=== PATIENT | male | born 1950 | race African-American/Black ===

== ENCOUNTER 2021-01-08 15:13 | Day surgery (SDCO) | payer MEDICARE, OTHER ==
[~2021-01-08] VITALS: Ht 182.9 cm; Wt 65.5 kg
[2021-01-08 15:51] LABS: BASOPHIL 0.3 % (0-2); EOSINOPHIL 0.2 % (0-7); HCT 31.3 % (42.0-52.0); HGB 10.2 g/dl (13.2-18.0); LYMPHOCYTE 14.2 % (15-48); MCH 29.3 pg (25.0-31.0); MCHC 32.6 g/dL (32.0-36.0); MCV 89.9 fL (78.0-100.0); MONOCYTE 7.9 % (0-12); MPV 9.9 fL (6.0-9.5); NEUTROPHIL 76.8 % (41-80); NRBC 0; PLT 211 K/uL (150-400); RBC 3.48 M/uL (4.70-6.00); RDW 15.2 % (11.5-14.0); WBC 6.2 K/uL (4.0-10.5)
[2021-01-08 16:16] LABS: ALBUMIN 3.5 g/dL (3.4-5.0); BILIRUBIN - TOTAL 0.7 mg/dL (0.2-1.0); BUN/CREAT RATIO (CALC) 11.1 RATIO; CREATININE 1.35 mg/dL (0.67-1.17); GLOBULIN (CALCULATION) 3.8 g/dL; POTASSIUM 3.7 mmol/L (3.5-5.1); TOTAL PROTEIN 7.3 g/dL (6.4-8.2)
[2021-01-08 16:36] LABS: PRO-BNP > 35000 pg/mL (<125)
[2021-01-08 16:52] LABS: INR 1.29 (0.9-1.2); PROTHROMBIN TIME 15.3 SECONDS (11.4-13.6)
[2021-01-08 16:53] LABS: PTT 47.4 SECONDS (22.2-34.7)
[2021-01-09 06:01] LABS: HCT 28.4 % (42.0-52.0); HGB 9.3 g/dl (13.2-18.0); MCH 29.6 pg (25.0-31.0); MCHC 32.7 g/dL (32.0-36.0); MCV 90.4 fL (78.0-100.0); MPV 10.1 fL (6.0-9.5); RBC 3.14 M/uL (4.70-6.00); RDW 15.1 % (11.5-14.0); WBC 4.3 K/uL (4.0-10.5)
[2021-01-09 06:19] LABS: BUN/CREAT RATIO (CALC) 13.2 RATIO; CREATININE 1.36 mg/dL (0.67-1.17)
[2021-01-09] MEDS ORDERED: COREG 3.125M3.125 MG PO (10:11)
[2021-01-09] MEDS ORDERED: AZITHROMYCIN250 MG PO (10:11)
[2021-01-09] MEDS ORDERED: ADULT LOW DOSE81 MG PO (10:14)
[2021-01-09] MEDS ORDERED: ATORVASTATIN CA80 MG PO (10:15)
[2021-01-09] MEDS ORDERED: PERCOCET 5-3251 EACH PO (10:16)
[2021-01-09] MEDS ORDERED: BRILINTA90 MG PO (10:16)
[2021-01-09] MEDS ORDERED: K-DUR20 MEQ PO (10:17)
[2021-01-09] MEDS ORDERED: VENTOLIN HFA IN18 GM INH ×2 (10:17→10:32)
--- NOTE | 2021-01-09 14:47 | NUR ---
01/09/21 Patient was discharged home. No discharge planning needs were identified.
== END 2021-01-09 12:30 | disposition home or self-care (01) ==
LOC: FER 15:13 → FTCU 17:17
PROVIDERS: Emergency Medicine; ADMIT Hospitalist
DX: J40 Bronchitis, not specified as acute or chronic (principal); I11.0 Hypertensive heart disease with heart failure; I50.9 Heart failure, unspecified; I25.10 Atherosclerotic heart disease of native coronary artery without angina pectoris; I25.5 Ischemic cardiomyopathy; E11.9 Type 2 diabetes mellitus without complications; E78.5 Hyperlipidemia, unspecified; Z95.818 Presence of other cardiac implants and grafts; Z20.822 Contact with and (suspected) exposure to COVID-19; Z95.810 Presence of automatic (implantable) cardiac defibrillator; Z87.891 Personal history of nicotine dependence; Z79.899 Other long term (current) drug therapy
CPT/HCPCS: 36415; 71046; 80048; 80053; 82962; 83880; 84443; 84484; 85025; 85610; 85730; 93005; G0378; J1650; U0002

== ENCOUNTER 2021-03-17 06:11 | Emergency (ER) | payer MEDICARE ==
[~2021-03-17 06:11] MED LIST: ADULT LOW DOSE81 MG PO; ATORVASTATIN CA80 MG PO; AZITHROMYCIN250 MG PO; BRILINTA90 MG PO; COREG 3.125M3.125 MG PO; K-DUR20 MEQ PO; PERCOCET 5-3251 EACH PO; VENTOLIN HFA IN18 GM INH
[2021-03-17 06:36] LABS: BASOPHIL 0.9 % (0-2); EOSINOPHIL 1.8 % (0-7); HCT 32.2 % (42.0-52.0); HGB 10.2 g/dl (13.2-18.0); LYMPHOCYTE 27.1 % (15-48); MCH 27.6 pg (25.0-31.0); MCHC 31.7 g/dL (32.0-36.0); MCV 87.3 fL (78.0-100.0); MONOCYTE 5.5 % (0-12); MPV 9.9 fL (6.0-9.5); NEUTROPHIL 64.7 % (41-80); NRBC 0; PLT 212 K/uL (150-400); RBC 3.69 M/uL (4.70-6.00); RDW 15.5 % (11.5-14.0); WBC 3.3 K/uL (4.0-10.5)
[2021-03-17 06:58] LABS: ALBUMIN 3.2 g/dL (3.4-5.0); BILIRUBIN - TOTAL 0.3 mg/dL (0.2-1.0); BUN/CREAT RATIO (CALC) 12.6 RATIO; CREATININE 1.27 mg/dL (0.67-1.17); GLOBULIN (CALCULATION) 3.5 g/dL; POTASSIUM 4.2 mmol/L (3.5-5.1); TOTAL PROTEIN 6.7 g/dL (6.4-8.2)
[2021-03-17 06:59] LABS: INR 1.32 (0.9-1.2); PROTHROMBIN TIME 15.7 SECONDS (11.8-13.4); PTT 31.1 SECONDS (24.4-34.7)
== END 2021-03-17 07:54 | disposition home or self-care (01) ==
LOC: FER 06:11
PROVIDERS: Emergency Medicine Emergency Medical Services
DX: I50.9 Heart failure, unspecified (principal); N17.9 Acute kidney failure, unspecified; E11.9 Type 2 diabetes mellitus without complications; I48.91 Unspecified atrial fibrillation; I25.10 Atherosclerotic heart disease of native coronary artery without angina pectoris; E78.5 Hyperlipidemia, unspecified; E87.6 Hypokalemia; F17.290 Nicotine dependence, other tobacco product, uncomplicated; Z95.0 Presence of cardiac pacemaker; Z79.82 Long term (current) use of aspirin; Z79.899 Other long term (current) drug therapy
CPT/HCPCS: 36415; 71045; 80053; 83880; 84484; 85025; 85610; 85730; 93005; 99285

== ENCOUNTER 2021-03-18 18:10 | Inpatient (IN) | payer MEDICARE ==
[~2021-03-18] VITALS: Ht 182.9 cm; Wt 72.2 kg
[2021-03-18 21:38] LABS: BASOPHIL 0.7 % (0-2); EOSINOPHIL 1.4 % (0-7); HCT 29.7 % (42.0-52.0); HGB 9.4 g/dl (13.2-18.0); LYMPHOCYTE 18.6 % (15-48); MCH 27.7 pg (25.0-31.0); MCHC 31.6 g/dL (32.0-36.0); MCV 87.6 fL (78.0-100.0); MONOCYTE 3.3 % (0-12); MPV 9.5 fL (6.0-9.5); NEUTROPHIL 75.5 % (41-80); NRBC 0; PLT 197 K/uL (150-400); RBC 3.39 M/uL (4.70-6.00); RDW 15.6 % (11.5-14.0); WBC 4.3 K/uL (4.0-10.5)
[2021-03-18 21:58] LABS: BUN/CREAT RATIO (CALC) 13.8 RATIO; CREATININE 1.23 mg/dL (0.67-1.17); POTASSIUM 3.8 mmol/L (3.5-5.1)
[2021-03-18 22:35] LABS: BILIRUBIN NEGATIVE (NEGATIVE); BLOOD 2+ Ery/uL (NEGATIVE); CLARITY CLOUDY (CLEAR); COLOR YELLOW (YELLOW); GLUCOSE (U) NORMAL (NORMAL); LEUKOCYTES 2+ Leu/uL (NEGATIVE); NITRITE POSITIVE (NEGATIVE); PROTEIN 1+ mg/dL (NEGATIVE); SPECIFIC GRAVITY >=1.030 (1.001-1.030); UROBILINOGEN 0.2 mg/dL (0.2-1.0); pH 5.5 (5.0-9.0)
[2021-03-18 22:40] LABS: BACTERIA 4+; SQUAMOUS EPITHELIAL CELLS RARE; URINARY WBC 20-50
[2021-03-19] MEDS ORDERED: LASIX20 MG PO (10:29)
[2021-03-20 08:10] LABS: BASOPHIL 0.8 % (0-2); EOSINOPHIL 3.4 % (0-7); HCT 27.8 % (42.0-52.0); HGB 8.7 g/dl (13.2-18.0); LYMPHOCYTE 19.2 % (15-48); MCH 27.9 pg (25.0-31.0); MCHC 31.3 g/dL (32.0-36.0); MCV 89.1 fL (78.0-100.0); MONOCYTE 5.7 % (0-12); MPV 9.6 fL (6.0-9.5); NEUTROPHIL 70.7 % (41-80); NRBC 0; PLT 173 K/uL (150-400); RBC 3.12 M/uL (4.70-6.00); RDW 15.9 % (11.5-14.0); WBC 4.9 K/uL (4.0-10.5)
[2021-03-20 08:35] LABS: BUN/CREAT RATIO (CALC) 13.6 RATIO; CREATININE 1.1 mg/dL (0.67-1.17); POTASSIUM 4.6 mmol/L (3.5-5.1)
[2021-03-20] MEDS ORDERED: PERCOCET 5-3251 EACH PO (11:12)
[2021-03-21 06:17] LABS: BASOPHIL 0.6 % (0-2); EOSINOPHIL 1.3 % (0-7); HCT 24.5 % (42.0-52.0); HGB 7.7 g/dl (13.2-18.0); LYMPHOCYTE 14.5 % (15-48); MCH 27.8 pg (25.0-31.0); MCHC 31.4 g/dL (32.0-36.0); MCV 88.4 fL (78.0-100.0); MONOCYTE 6.1 % (0-12); MPV 10.3 fL (6.0-9.5); NEUTROPHIL 77.1 % (41-80); NRBC 0; PLT 162 K/uL (150-400); RBC 2.77 M/uL (4.70-6.00); RDW 15.7 % (11.5-14.0); WBC 8.2 K/uL (4.0-10.5)
[2021-03-21 06:51] LABS: BUN/CREAT RATIO (CALC) 17.5 RATIO; CREATININE 1.37 mg/dL (0.67-1.17); POTASSIUM 5.1 mmol/L (3.5-5.1)
--- NOTE | 2021-03-21 13:33 | NUR ---
SPOKE WITH PT. SON, AVI CRAFT. HE REQUESTED THAT HIS FATHER GO TO [facility] FOR REHAB. SENT FAX TO JACINDA AT [facility] FOR REVIEW.
[2021-03-22 06:23] LABS: BASOPHIL 0.9 % (0-2); EOSINOPHIL 2.6 % (0-7); HGB 7.5 g/dl (13.2-18.0); LYMPHOCYTE 8.3 % (15-48); MCH 27.6 pg (25.0-31.0); MCHC 31.3 g/dL (32.0-36.0); MCV 88.2 fL (78.0-100.0); MPV 10.1 fL (6.0-9.5); NEUTROPHIL 81.7 % (41-80); NRBC 0; PLT 149 K/uL (150-400); RBC 2.72 M/uL (4.70-6.00); RDW 16.1 % (11.5-14.0); WBC 6.5 K/uL (4.0-10.5)
[2021-03-22 06:46] LABS: CREATININE 1.58 mg/dL (0.67-1.17); POTASSIUM 4.8 mmol/L (3.5-5.1)
--- NOTE | 2021-03-23 02:43 | NUR ---
NIGHT NURSE HAD ANOTHER NURSE SCAN IN NIGHT MEDS BEFORE CRUSHING AND TRYING TO GIVE TO PATIENT ON 03/22/21. PT CONTINUED TO REFUSE MEDS AFTER MULTIPLE ATTEMPTS. THE SYSTEM WILL NOT LET NURSE CHANGE MEDS BEFORE MIDNIGHT. KIT SAYS HE DID TAKE 2000 AND 2200 MEDS BUT THAT IS NOT TRUE. PT REFUSED
[2021-03-23 05:26] LABS: BASOPHIL 0.7 % (0-2); EOSINOPHIL 2.2 & (0-7); HCT 26.4 % (42.0-52.0); HGB 8.4 g/dl (13.2-18.0); MCH 27.9 pg (25.0-31.0); MCHC 31.8 g/dL (32.0-36.0); MCV 87.7 fL (78.0-100.0); MONOCYTE 7.1 % (0-12); MPV 10.4 fL (6.0-9.5); NEUTROPHIL 77.9 % (41-80); PLT 184 K/uL (150-400); RBC 3.01 M/uL (4.70-6.00); RDW 15.9 % (11.5-14.0); WBC 6.93 K/uL (4.0-10.5)
[2021-03-23 05:43] LABS: BUN/CREAT RATIO (CALC) 20.6 RATIO; CREATININE 1.55 mg/dL (0.67-1.17); POTASSIUM 4.4 mmol/L (3.5-5.1)
[2021-03-24] MEDS ORDERED: STIMULANT LAXA1 EACH PO (10:02)
[2021-03-24] MEDS ORDERED: LAXATIVE SUPPOS10 MG PR (10:02)
[2021-03-24] MEDS ORDERED: ACETAMINOPHEN325 MG PO (10:02)
[2021-03-24] MEDS ORDERED: PLAVIX75 MG PO (10:02)
[2021-03-24] MEDS ORDERED: DULCOLAX5 MG PO (10:02)
[2021-03-24] MEDS ORDERED: MILK OF MA400 MG/5 M PO (10:02)
[2021-03-24] MEDS ORDERED: ASPIRIN81 MG PO (10:02)
[2021-03-24] MEDS ORDERED: TAB-A-VITE TA400 MC1 PO (10:02)
[2021-03-24] MEDS ORDERED: PEPCID AC20 MG PO (10:02)
[2021-03-24] MEDS ORDERED: HUMULIN R100 UNIT/2 SC (10:02)
[2021-03-24] MEDS ORDERED: PANTOPRAZOLE SO40 MG PO (10:02)
[2021-03-24] MEDS ORDERED: ZOFRAN4 M1 PO (10:02)
[2021-03-24] MEDS ORDERED: FEOSOL325 MG PO (10:02)
[2021-03-24] MEDS ORDERED: NORCO 5-325 TA1 EACH PO (10:02)
[2021-03-24 10:42] LABS: BILIRUBIN NEGATIVE (NEGATIVE); BLOOD 1+ Ery/uL (NEGATIVE); CLARITY CLEAR (CLEAR); COLOR YELLOW (YELLOW); GLUCOSE (U) NORMAL (NORMAL); LEUKOCYTES NEGATIVE Leu/uL (NEGATIVE); NITRITE NEGATIVE (NEGATIVE); PROTEIN NEGATIVE (NEGATIVE); UROBILINOGEN 0.2 mg/dL (0.2-1.0)
[2021-03-24 10:56] LABS: BACTERIA TRACE; SQUAMOUS EPITHELIAL CELLS RARE; URINARY RBC RARE; URINARY WBC RARE
[2021-03-24 11:18] LABS: BUN/CREAT RATIO (CALC) 24.3 RATIO; CREATININE 1.44 mg/dL (0.67-1.17); POTASSIUM 4.5 mmol/L (3.5-5.1)
[2021-03-24 11:31] LABS: BASOPHIL 0.4 % (0-2); EOSINOPHIL 0.4 % (0-7); HCT 27.2 % (42.0-52.0); HGB 8.6 g/dl (13.2-18.0); LYMPHOCYTE 9.5 % (15-48); MCH 28.4 pg (25.0-31.0); MCHC 31.6 g/dL (32.0-36.0); MCV 89.8 fL (78.0-100.0); MONOCYTE 6.1 % (0-12); MPV 10.4 fL (6.0-9.5); NEUTROPHIL 83.2 % (41-80); NRBC 0; PLT 157 K/uL (150-400); RBC 3.03 M/uL (4.70-6.00); RDW 16.4 % (11.5-14.0)
== END 2021-03-24 15:00 | DRG 480 ==
LOC: FER 18:10 → FMS 21:53
PROVIDERS: Internal Medicine; Nurse Practitioner Adult Health; Nurse Practitioner Family; Orthopaedic Surgery; ADMIT Internal Medicine
PROC: 0QS604Z Reposition Right Upper Femur with Internal Fixation Device, Open Approach (ICD-10-PCS; 2021-03-20)
PROC: 30233N1 Transfusion of Nonautologous Red Blood Cells into Peripheral Vein, Percutaneous Approach (ICD-10-PCS; principal; 2021-03-22)
DX: S72.141A Displaced intertrochanteric fracture of right femur, initial encounter for closed fracture (principal); J18.9 Pneumonia, unspecified organism; G93.41 Metabolic encephalopathy; N30.00 Acute cystitis without hematuria; D62 Acute posthemorrhagic anemia; N17.9 Acute kidney failure, unspecified; F05 Delirium due to known physiological condition; Z20.822 Contact with and (suspected) exposure to COVID-19; E11.9 Type 2 diabetes mellitus without complications; I25.5 Ischemic cardiomyopathy; E86.0 Dehydration; I25.10 Atherosclerotic heart disease of native coronary artery without angina pectoris; F03.90 Unspecified dementia, unspecified severity, without behavioral disturbance, psychotic disturbance, mood disturbance, and anxiety; I25.2 Old myocardial infarction; W01.0XXA Fall on same level from slipping, tripping and stumbling without subsequent striking against object, initial encounter; Z95.810 Presence of automatic (implantable) cardiac defibrillator
CPT/HCPCS: 36415; 36430; 70450; 71045; 73501; 73700; 76000; 80048; 80053; 81001; 82962; 83880; 84484; 85025; 85610; 85730; 86850; 86900; 86901; 86922; 93005; 94010; 96372; 96374; 96375; 97162; 97166; 97530-GP; 97535; C1713; J0696; J0697; J1170; J1630; J2060; J2250; J2370; J2405; J2704; J3010; J7030; J7120; P9016; U0002

== ENCOUNTER 2021-03-31 13:33 | Inpatient (IN) | payer MEDICARE ==
[~2021-03-31] VITALS: Ht 182.9 cm; Wt 66.4 kg
[~2021-03-31 13:33] MED LIST changes: +ACETAMINOPHEN325 MG PO; +ASPIRIN81 MG PO; +DULCOLAX5 MG PO; +FEOSOL325 MG PO; +HUMULIN R100 UNIT/2 SC; +LASIX20 MG PO; +LAXATIVE SUPPOS10 MG PR; +MILK OF MA400 MG/5 M PO; +NORCO 5-325 TA1 EACH PO; +PANTOPRAZOLE SO40 MG PO; +PEPCID AC20 MG PO; +PLAVIX75 MG PO; +STIMULANT LAXA1 EACH PO; +TAB-A-VITE TA400 MC1 PO; +ZOFRAN4 M1 PO
[2021-03-31 14:26] LABS: BASOPHIL 0.1 % (0-2); EOSINOPHIL 0 % (0-7); LYMPHOCYTE 4.5 % (15-48); MCHC 29.4 g/dL (32.0-36.0); MCV 91.6 fL (78.0-100.0); MONOCYTE 3.3 % (0-12); MPV 11.4 fL (6.0-9.5); NRBC 0; PLT 202 K/uL (150-400); RBC 3.71 M/uL (4.70-6.00); RDW 18.6 % (11.5-14.0); WBC 13.3 K/uL (4.0-10.5)
[2021-03-31 14:34] LABS: NEUTROPHIL 90.7 % (41-80)
[2021-03-31 14:44] LABS: ALBUMIN 2.2 g/dL (3.4-5.0); BILIRUBIN - TOTAL 3.5 mg/dL (0.2-1.0); BUN/CREAT RATIO (CALC) 38.8 RATIO; CREATININE 1.52 mg/dL (0.67-1.17); GLOBULIN (CALCULATION) 4.4 g/dL; POTASSIUM 4.5 mmol/L (3.5-5.1); TOTAL PROTEIN 6.6 g/dL (6.4-8.2)
[2021-03-31 14:50] LABS: LACTIC ACID 3.5 mmol/L (0.4-1.9)
[2021-03-31 14:52] LABS: INR 1.6 (0.9-1.2); PROTHROMBIN TIME 18.3 SECONDS (11.8-13.4)
[2021-03-31 17:40] LABS: BILIRUBIN 1+ mg/dL (NEGATIVE); BLOOD 2+ Ery/uL (NEGATIVE); CLARITY CLEAR (CLEAR); COLOR YELLOW (YELLOW); GLUCOSE (U) NORMAL (NORMAL); LEUKOCYTES NEGATIVE Leu/uL (NEGATIVE); NITRITE NEGATIVE (NEGATIVE); PROTEIN 2+ mg/dL (NEGATIVE); pH 7.5 (5.0-9.0)
[2021-03-31 17:43] LABS: BACTERIA TRACE; TRANSITIONAL EPITHELIAL CELLS RARE; URINARY WBC RARE
[2021-03-31 17:44] LABS: AMORPHOUS URATES CRYSTALS MODERATE
[2021-03-31 22:30] LABS: BUN/CREAT RATIO (CALC) 41.7 RATIO; CREATININE 1.56 mg/dL (0.67-1.17); PHOSPHORUS 3.7 mg/dL (2.6-4.7); POTASSIUM 3.8 mmol/L (3.5-5.1)
[2021-04-01 00:56] LABS: CKMB 1.9 ng/mL (0.0-3.6)
[2021-04-01] MEDS ORDERED: PRILOSEC20 MG PO (02:13)
[2021-04-01 05:52] LABS: BASOPHIL 0 % (0-2); EOSINOPHIL 0 % (0-7); HCT 28.6 % (42.0-52.0); HGB 8.6 g/dl (13.2-18.0); LYMPHOCYTE 3.8 % (15-48); MCH 27.2 pg (25.0-31.0); MCHC 30.1 g/dL (32.0-36.0); MCV 90.5 fL (78.0-100.0); MONOCYTE 3.2 % (0-12); MPV 11.6 fL (6.0-9.5); NEUTROPHIL 92.4 % (41-80); NRBC 0; PLT 165 K/uL (150-400); RBC 3.16 M/uL (4.70-6.00); RDW 18.3 % (11.5-14.0)
[2021-04-01 06:19] LABS: ALBUMIN 1.8 g/dL (3.4-5.0); BILIRUBIN - TOTAL 2.4 mg/dL (0.2-1.0); BUN/CREAT RATIO (CALC) 35.3 RATIO; CREATININE 1.87 mg/dL (0.67-1.17); GLOBULIN (CALCULATION) 3.7 g/dL; TOTAL PROTEIN 5.5 g/dL (6.4-8.2)
--- NOTE | 2021-04-01 10:36 | NUR ---
04/01 Mr. Mobley was admitted from [facility]. Nica reports that patient may return. A new COVID test is not requires. Rafael Avendaño, son, reports family to be seeking alternative placement. In the meantime, they plan for Mr. Mobley to return to [facility].
[2021-04-02 04:10] LABS: BASOPHIL 0.1 % (0-2); EOSINOPHIL 0 % (0-7); HCT 25.3 % (42.0-52.0); HGB 7.5 g/dl (13.2-18.0); LYMPHOCYTE 4.8 % (15-48); MCH 26.9 pg (25.0-31.0); MCHC 29.6 g/dL (32.0-36.0); MCV 90.7 fL (78.0-100.0); MONOCYTE 2.5 % (0-12); MPV 12.3 fL (6.0-9.5); NEUTROPHIL 91.9 % (41-80); NRBC 0; PLT 145 K/uL (150-400); RBC 2.79 M/uL (4.70-6.00); RDW 18.5 % (11.5-14.0); WBC 12.2 K/uL (4.0-10.5)
[2021-04-02 04:38] LABS: CREATININE 2.13 mg/dL (0.67-1.17); POTASSIUM 3.6 mmol/L (3.5-5.1)
[2021-04-03 06:07] LABS: BASOPHIL 0.1 % (0-2); EOSINOPHIL 0 % (0-7); HCT 24.5 % (42.0-52.0); HGB 7.3 g/dl (13.2-18.0); MCHC 29.8 g/dL (32.0-36.0); MCV 90.7 fL (78.0-100.0); MONOCYTE 2.4 % (0-12); MPV 13.1 fL (6.0-9.5); NRBC 0.2; PLT 125 K/uL (150-400); RDW 18.7 % (11.5-14.0); WBC 13.1 K/uL (4.0-10.5)
[2021-04-03 06:12] LABS: BUN/CREAT RATIO (CALC) 25.6 RATIO; CREATININE 2.81 mg/dL (0.67-1.17); POTASSIUM 3.4 mmol/L (3.5-5.1)
[2021-04-03 06:16] LABS: NEUTROPHIL 91.6 % (41-80)
--- NOTE | 2021-04-03 11:27 | NUR ---
Nutrition F/U: Pt continues NPO, x [address] spoke with RN on unit, no plan to advance diet att d/t pt AMS. Pt may be appropriate to initiate EN, RD will stand by for MD/family discretion. Chart reviewed: Multiple nutrition related lab values OOR, will continue to monitor. New wt noted 04/03/21 146#, BMI 19.79. 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 RD will continue to monitor 2-3x per week. ~Graciela Raphael MS, RDN, LD
--- NOTE | 2021-04-03 15:47 | NUR ---
TF Recommendations. RD spoke with MD and family 04/03/21 ~3:05pm. Family and MD agree to initiate TF via NGT. Estimated Needs based on 66 kg BW: 1650 kcal day (25-30 kcal/kg), 66 g protein (1 g/kg). Recommendation: Initiate continuous TF of Jevity 1.5 @ 10ml/hr and advance by 10ml Q shift to goal rate of 45ml/hr as tolerated. Provide additional FW flushes of 200 ml Q6 hrs as tolerated. Total EN of 1620 kcal, 68g protein, and 1620 ml H2O with flushes. ~Graciela Raphael, MS, RDN, LD
--- NOTE | 2021-04-03 17:21 | NUR ---
RN GOT THE OK WITH [facility] [employer] TO ALLOW THE FAMILY TO MEET IN THE [place] WITH THE MD AN DIETITION ON A PLAN OF CARE. MD REVIEWED WITH RN POST MEETING THAT THE FAMILY WISHED TO BE AGGRESIVE WITH TREATMENT PLAN AND WANTED EVERYTHING DONE TO PRESERVE HIS LIFE. WITH THE ASSIST OF 2 RNs TO KEEP PT STILL PUT A DOBHOFF TO BEGIN GLUCERNA 1.2 BOLUS 100 Q6H. RN GAVE THE PT MORPHINE 2MG IVP AT 1549 FOR COMFORT. ATTEMPTED THE DOBHOFF TWICE WITH THE XRAY SHOWING THAT IT ENTERED THE LUNG. WHILE WAIING FOR XRAY TO GET TO THE FLOOR 2 RNs SUCTIONED A MODERATE AMOUNT OF THICK MARSH SPUTUM FROM THE BACK OF THE PTS MOUTH. PT HAD BEGAN COUGHING BUT NOT HARD ENOUGH TO EXPEL IT. SISTERS WERE WAITING IN THE COUGHLIN STATING "THIS [facility]". RN DID ORAL CARE AND LUBRICATED PTS LIPS. THE THIRD ATTEMPT WAS SUCESSFUL AND DOCTOR STATED TO PULL WIRE. THE PRIMARY RN ASKED FOR ASSISTANCE ON HOW TO REMOVE THE WIRE FROM ANOTHER RN ON THE FLOOR. WHEN THE RNs ENTERED THE ROOM 2 SISTERS WERE AT BEDSIDE AND STATED "HE STOPPED BREATHING. HE JUST GOT SO STILL". ONE RN ASSESSED THE PT AND THE OTHER WENT TO LOOK AT THE MONITOR. THE PT ON THE MONITOR WAS IN VFIB. CODE BLUE WAS CALLED AT 1628 AND CPR AND BAGGING WAS STARTED. 1631- CHARGED 200 SHOCK COMPRESSION CONTINUED 1631- 1 MG EP 1633- CHARGED 200 SHOCK COMPRESSIONS CONTINUED 1634- 1 MG EPI 1635- AMIODERONE 150MG SUCTIONING 1636- PULSE CHECK. NO PULSE 1637- 1 MG EPI AND CHARGED 200 SHOCK CONPRESSIONS CONTINUED 1639- AMEODERONE 300 MG 1640- 1MG EPI 1641- PULSE CHECK. NO PULSE CHARGED 200 SHOCK AND COMPRESSIONS CONTINUED 1645- MD CALLED THE CODE. PT DURING THE CODE THE FAMILY WAS OUTSIDE THE ROOM IN THE COUGHLIN SCREAMING AND YELLING "THIS HOSPITAL KILLED HIM" AND "WE'RE GOING TO [facility]". 5 MINUTE TIME DELAY ON TEMETRY MONITOR
--- NOTE | 2021-04-03 18:46 | NUR ---
PT ASSESSED BY ROBERTO HUMPHRIES RN AFTER FAMILY STATED THAT HE WAS NOT BREATHING. PULSE CHECK WAS FAINT AND PT WAS FOUND TO BE SHALLOW BREATHING. PRIMARY RN WENT TO CHECK THE MONITOR AND FOUND PT TO BE IN VTACH.
== END 2021-04-03 16:45 | disposition expired | DRG 871 ==
LOC: FER 13:33 → FTCU 18:01
PROVIDERS: Internal Medicine; Nurse Practitioner; Physician Assistant; ADMIT Internal Medicine
PROC: 5A12012 Performance of Cardiac Output, Single, Manual (ICD-10-PCS; principal; 2021-04-03)
DX: A41.9 Sepsis, unspecified organism (principal); J18.9 Pneumonia, unspecified organism; G93.41 Metabolic encephalopathy; E87.0 Hyperosmolality and hypernatremia; N17.9 Acute kidney failure, unspecified; I47.2 Ventricular tachycardia; J44.0 Chronic obstructive pulmonary disease with (acute) lower respiratory infection; Z20.822 Contact with and (suspected) exposure to COVID-19; I46.2 Cardiac arrest due to underlying cardiac condition; R65.20 Severe sepsis without septic shock; E86.0 Dehydration; L89.626 Pressure-induced deep tissue damage of left heel; L89.152 Pressure ulcer of sacral region, stage 2; E11.9 Type 2 diabetes mellitus without complications; I25.5 Ischemic cardiomyopathy; I25.10 Atherosclerotic heart disease of native coronary artery without angina pectoris; I50.9 Heart failure, unspecified; Z95.810 Presence of automatic (implantable) cardiac defibrillator; Z98.890 Other specified postprocedural states; Y95 Nosocomial condition
CPT/HCPCS: 31500; 36415; 36600; 70450; 71045; 80048; 80053; 80061; 81001; 82553; 82803; 82962; 83605; 83735; 84100; 84145; 84484; 85025; 85610; 86140; 87040; 92950; 93005; 94010; 94640; 94760; 94762; 97162; 97166; 97530-GP; 97535; C9113; J0171; J0282; J0696; J1650; J2270; J2543; J3370; J3480; J7030; J7050; J7070; U0002